=== PATIENT | male | born 1980 ===

== ENCOUNTER 2020-01-01 14:51 | Outpatient (CLI) | payer OTHER ==
[2020-01-01 15:52] VITALS: BP 142/78
--- NOTE | 2020-01-01 15:52 | SLEEP CARE CONSULTATION ---
Information from patient questionnaire entered by Gabby Hurst. I have reviewed and concur with the information entered by Gabby Hurst. This document represents the service I personally performed and the decisions made by me, Maggie Kiran ARNP. History of Present Illness Service Date and Time: 01/01/2020 1451 Reason for Visit: New patient Chief Complaint: reports: Insomnia (when stressed and he has lots on his mind), Unrefreshed sleep, Snoring, Excessive daytime sleepiness, Observed pauses in breathing, Fatigue, Frequent awakenings at night, Other (sometimes sleeping less helps him feel better) Date of Onset: 4-5 years Usual bedtime: 2200 Time it takes to fall asleep: 5-10 minutes Snores at night: Yes Observed to quit breathing while asleep: Yes Sleeps alone due to snoring: No Number of times waking at night: 3-4 Reasons for waking at night: reports: Snoring, Gasping for air, Bathroom, Other (stops breathing when falling asleep and it wakes him up). denies: Choking Toss, Turn, or Twitch while sleeping: Yes Recalls having dreams: No Usually gets out of bed at: 0600 Feels refreshed in the morning: No Morning headache: Yes (sometimes; 1-2 times a week, last about an hour) Sleepy or fatigued during the day: Yes Ever fallen asleep while driving: No Takes day naps: No Dreams during day naps: No Prior sleep studies: No Additional HPI information: I had the pleasure of seeing MOHINI RANDOLPH today regarding the possibility of him having a sleep disorder. His current complaints are insomnia when he is stressed, unrefreshed sleep, snoring, observed pauses in breathing when asleep, frequent night awakenings and excessive daytime sleepiness. He states he never wake up feeling refreshed. His has prods him with her elbow at night due to snoring and pauses in breathing. He denies drowsy driving. He does not drink or smoke. He has woken up gasping for air and snoring. His father snores loudly but has not been tested for RODO. - Parasomnia Symptoms Ever been unable to move upon waking from sleep: No Walks in sleep: No Talks in sleep: No Ever acted out dreams in sleep: No Ever felt weak in the knees when startled or emotional: No Bothered by creepy, crawly, restless sensations in legs: No Problems with memory or concentration: No Subjective Initial [place] Sleepiness Scale score: 15 (in 2020) Past Medical History Past Medical History: reports: Anemia (Beta Thalassemia). denies: Hypertension (blood pressure have been reading higher for last 2-3 years), Claustrophobia, Congestive Heart Failure, Diabetes, Stroke, Coronary Heart Disease, Arrythmia, Hypothyroidism, Anxiety, Impotence, Depression, Mood disorder, GERD, Attention deficit Social History The patient's occupation is active . Patient is and lives in [place]. Have you smoked in the past 12 months: No Alcohol use: No Caffeine use: Yes Caffeine amount and frequency: 1-2 cups/day Family History Family history of sleep disordered breathing: Yes Family Hx Sleep Apnea: Father: Snoring Allergies and Home Medications Drug allergies reviewed: Yes (NKDA) Home medication list reviewed: Yes (multivitamins) Review of Systems Weight gain over past 5 years: 5 Weight loss over past 5 years: 5 Cardiovascular: denies: high blood pressure, palpitations, chest pain, irregular heart rate or pulse, leg or foot swelling Respiratory: denies: shortness of breath Gastrointestinal: denies: heartburn, difficulty swallowing Urinary: denies: incontinence, impotence Neurological: denies: headaches, seizure, head trauma, speech dysfunction, gait or balance problems Psychiatric: denies: anxiety, depression, mood disorder, claustrophobia Ear/Nose/Throat: reports: tonsillectomy, wisdom teeth removed (one left). denies: nasal congestion, sinus problems, nose bleeds, dry mouth/throat, injury to nose Endocrine: reports: sluggishness. denies: thyroid disease Musculoskeletal: reports: joint pain. denies: muscle pain or cramping, mobility problems Immunologic: denies: allergies to food or environment Physical Exam Blood Pressure: 142/78 Cuff size: long Heart Rate: 63 O2 Saturation: 98 Height: 5 ft 6 in Weight: 172 lb Body Mass Index: 27.7 BMI Classification: Overweight Neck circumference: 14.75 (inches) HEENT: No craniofacial malformation Nostrils: patent to airflow Turbinates: normal Septum: midline Mouth and throat: narrow oropharynx Soft palate: normal Hard palate: arched Uvula: normal Uvula visualization: 50% Mallampati Class II Tongue: normal in size Tonsils: small Chin and jaw: normal size and position Neck: normal w/o lymphadenopathy or thyromegaly Heart: regular rate and rhythm Lungs: clear bilaterally Impression and Plan 1. Suspected Obstructive Sleep Apnea-Hypopnea Syndrome, as suggested by a history of loud and irregular snoring, observed cessation of breath while asleep, gasping or choking in sleep, morning headache, frequent awakening during the night, unrefreshed sleep, cognitive impairment, and excessive daytime sleepiness. I reviewed with patient that a narrow oropharynx and obesity are common predisposing factors for obstructive sleep apnea-hypopnea syndrome. I recommend proceeding to polysomnography to confirm the diagnosis and to assess severity. If the patient has significant sleep disordered breathing, a manual CPAP titration study will also be performed to find the optimal treatment pressure. I informed the patient of what the sleep studies involve and after some discussion, obtained agreement to proceed. The pathophysiology of obstructive sleep apnea-hypopnea syndrome was discussed with the patient and health risks of cardiovascular and cerebrovascular disease if not treated. AAS brochure for obstructive sleep apnea-hypopnea syndrome given and reviewed. Risks of drowsy driving discussed in detail and patient advised to avoid long distance driving and to bone char puller at the first sign of drowsiness. Patient agreed to plan. * Schedule polysomnography +- manual CPAP titration study. * Avoid long distance driving or driving when feeling sleepy. * Avoid alcohol, sedative and muscle relaxant around bedtime. * Attempt to lose weight. * Review instructions provided by trained office staff on how to prepare for the sleep study. * Return for follow-up after sleep study completed. Visit Type: In Office Time Spent with Patient (minutes): 30 Provider Statement: I spent 100% of the Face to Face Visit with the patient with greater than 50% spent counseling the patient and coordination of care.
== END 2020-01-01 14:52 | disposition home or self-care (01) ==
LOC: SC 14:51
PROVIDERS: ATTEND Nurse Practitioner Family
DX: R06.83 Snoring (principal); G47.10 Hypersomnia, unspecified; G47.8 Other sleep disorders; R06.81 Apnea, not elsewhere classified; E66.3 Overweight; Z68.27 Body mass index [BMI] 27.0-27.9, adult
CPT/HCPCS: 99204; 99212

== ENCOUNTER 2020-01-12 20:36 | Outpatient (CLI) | payer OTHER | END 2020-01-12 20:37 | disposition home or self-care (01) | LOC: SC 20:36 | PROVIDERS: ATTEND Nurse Practitioner Family | DX: R06.83 Snoring (principal); G47.10 Hypersomnia, unspecified; G47.8 Other sleep disorders; R06.81 Apnea, not elsewhere classified; E66.3 Overweight; Z68.27 Body mass index [BMI] 27.0-27.9, adult | CPT/HCPCS: 95810 ==

== ENCOUNTER 2020-01-17 09:55 | Outpatient (CLI) | payer OTHER ==
--- NOTE | 2020-01-17 10:23 | SLEEP CARE CONSULTATION ---
Information from patient questionnaire entered by Freddy Salinas. I have reviewed and concur with the information entered by Freddy Salinas. This document represents the service I personally performed and the decisions made by , Maggie Kiran ARNP. History of Present Illness Service Date and Time: 01/17/202055 Initial [place] Sleepiness Scale score: 15 (in 2020) Current [place] Sleepiness Scale score: 15 Additional HPI information: MOHINI RANDOLPH returns for follow up and results of the recently performed polysomnography. The patient was informed of the following findings: Normal study with no significant sleep disordered breathing. I explained the pathophysiology behind obstructive sleep apnea. Patient does not have sleep apnea and was advised how weight gain could increase the risk of developing sleep apnea in the future. I strongly encouraged the patient to lose weight. Patient has light intensity snoring. Snoring can be reduced by weight loss. Weight loss is best achieved with diet consult. Patient instructed to contact PCP for referral. Snoring can also be treated with an oral appliance from a dentist. Advised to check insurance coverage. In addition, an ENT evaluation can be do to see if other treatment is indicated. Patient counseled not drink alcohol less than 4 hours before bedtime as it can increase snoring and apnea. Patient was cautioned about risks of drowsy driving until sleepiness symptoms resolve. AAS patient education on How to get Better Sleep given and reviewed. Sleep Study - Results Type of Sleep Study: Polysomnography Prior sleep studies: No Polysomnography/Home Sleep Study results: IMPRESSION: The quality of the study is good. The patient had normal sleep efficiency. The sleep architecture was normal as well. Respiratory monitoring showed no evidence of sleep disordered breathing (AHI = 0.5) or hypoxia (niki oxygen saturation of 93%). The patient slept adequately in supine position (supine AHI = 1.8; nonsupine = 0.00). Snore was light in intensity. There was no significant periodic leg movement of sleep. Cardiac rhythm was normal sinus rhythm without significant arrhythmia. No abnormal behavior (parasomnia) observed during the night. Allergies and Home Medications Drug allergies reviewed: Yes (NKDA) Home medication list reviewed: Yes (no changes) Review of Systems Review of systems same as previous: Yes (no changes) Physical Exam Heart Rate: 68 O2 Saturation: 98 Height: 5 ft 6 in Weight: 174 lb Body Mass Index: 28.0 BMI Classification: Overweight Impression and Plan 1. Snoring but no significant sleep disordered breathing. Patient advised that often weight loss will reduce snoring as well as apnea risk. An oral appliance can also be used for snoring. This would require a dental consultation. Patient cautioned not to use other online appliances as can cause bite issues. A list of accredited dentists in area and one local dentist who makes oral appliances given. Patient is advised to check if insurance will cover. An ENT consult can also be helpful to determine if any other treatment is an option. 2. Fatigue. Patient has a history of Thalassemia anemia. He is getting adequate time in bed and no significant insomnia noted. Patient advised to follow up with PCP for further evaluation of his fatigue. * Follow up with PCP for fatigue * Attempt to lose weight * Avoid alcohol consumption near bedtime * The patient is cautioned about driving until sleepiness is completely resolved. * Return as needed for follow up with worsening or change in symptoms. Visit Type: In Office Time Spent with Patient (minutes): 20 Provider Statement: I spent 100% of the Face to Face Visit with the patient with greater than 50% spent counseling the patient and coordination of care.
== END 2020-01-17 09:56 | disposition home or self-care (01) ==
LOC: SC 09:55
PROVIDERS: ATTEND Nurse Practitioner Family
DX: R06.83 Snoring (principal); R53.83 Other fatigue; E66.3 Overweight; Z68.28 Body mass index [BMI] 28.0-28.9, adult
CPT/HCPCS: 99212; 99213